=== PATIENT | female | born 1950 | race Caucasian/White ===

== ENCOUNTER → 2017-02-26 | Outpatient (CLI) | payer MEDICARE, OTHER | END | disposition home or self-care (01) | LOC: CDC 14:26 | DX: R94.31 Abnormal electrocardiogram [ECG] [EKG] (principal) | CPT/HCPCS: 93000 ==

== ENCOUNTER 2017-03-05 10:03 | Day surgery (SDC) | payer OTHER ==
[~2017-03-05] VITALS: Ht 160 cm; Wt 70.0 kg
[~2017-03-05 10:03] MED LIST: CELEXA40 MG PO; COREG6.25 M1 PO; DIOVAN160 MG PO; ERGOCALCIF50000 UNIT PO; FERREX 150 PLU1 EACH PO; LEVEMIR FL100 UNIT/1 SC; LEVO-T200 MCG PO; LO-DOSE ASPIRIN81 M2 PO; NORVASC10 MG PO
[2017-03-05 10:35] VITALS: BP 187/87
[2017-03-05 11:09] LABS: MCH 30.4 PG (29.0-34.0); MCHC 31.3 G/DL (30.0-36.0); MCV 97.2 FL (83-99); MEAN PLAT.VOLUME 10.9 uM^3 (9.5-12.4); PLATELET COUNT 120 K/uL (156-360); RBC DIS.WIDTH-CV 13.2 % (11.8-14.6); RBC DIS.WIDTH-SD 46.8 % (39-53); RED BLOOD COUNT 4.94 M/uL (3.80-5.20)
[2017-03-05 11:09] LABS: POINT-OF-CARE METER ID UU13113694; POINT-OF-CARE USER ID AHSRSCSLC11
[2017-03-05 11:18] LABS: ANION GAP 14 MEQ/L (2-14); CHLORIDE 103 MEQ/L (99-109); GFR ESTIMATE (CALCULATED) 8 mL/min/; GLUCOSE 113 mg/dL (70-99); POTASSIUM 5.5 MEQ/L (3.7-5.4); SAMPLE HEMOLYSIS CHECK 0; SAMPLE ICTERIC CHECK 0; SAMPLE LIPEMIA CHECK 0; SODIUM 138 MEQ/L (136-147); UREA NITROGEN (BUN) 53 mg/dL (9-23)
[2017-03-05 12:17] LABS: METH RESISTANT S AUREUS PCR NEGATIVE (NEGATIVE)
[2017-03-05 12:18] LABS: PROBE CHECK PASS; SPECIMEN PROCESSING CONTROL PASS
[2017-03-05 13:21] VITALS: BP 179/94
[2017-03-05 14:30] VITALS: BP 197/91
== END 2017-03-05 15:10 | disposition home or self-care (01) ==
LOC: SDC 10:03
PROVIDERS: Surgery
DX: I12.0 Hypertensive chronic kidney disease with stage 5 chronic kidney disease or end stage renal disease (principal); E11.22 Type 2 diabetes mellitus with diabetic chronic kidney disease; N18.6 End stage renal disease; Z99.2 Dependence on renal dialysis; Z86.73 Personal history of transient ischemic attack (TIA), and cerebral infarction without residual deficits; Z79.82 Long term (current) use of aspirin; Z82.49 Family history of ischemic heart disease and other diseases of the circulatory system; Z83.3 Family history of diabetes mellitus; Z84.1 Family history of disorders of kidney and ureter
CPT/HCPCS: 80048; 82948; 85027; 87641; J0690; J1644; J2250; J2720; J3010